=== PATIENT | male | born 1995 | race Caucasian/White ===

== ENCOUNTER 2021-11-11 00:04 | Emergency (ER) | payer BC ==
[~2021-11-11] VITALS: Ht 175.2 cm; Wt 72.4 kg
--- NOTE | 2021-11-11 00:35 | ED Cough/URI ---
General Chief Complaint: COVID19 Suspect/Confirmed Stated Complaint: BODY ACHES,CHILLS,COUGHING,FEVER,SORE THROAT Source: patient History of Present Illness Date Seen by Provider: Nov 11, 2021 Time Seen by Provider: 00:25 Initial Comments PT ARRIVES VIA POV FROM HOME STATES HE HAS BEEN SICK FOR THE LAST 3 DAYS WITH: -NON-PRODUCTIVE COUGH -SUBJECTIVE FEVER AND CHILLS -NASAL CONGESTION -SORE THROAT--MAIN COMPLAINT -BODY ACHES NO SHORTNESS OF BREATH NO HEADACHE NO LOSS OF TASTE/SMELL NO GI SYMPTOMS, BUT DOES NOT HAVE AN APPETITE PT IS DRINKING FLUIDS WELL TOOK IBUPROFEN AT 2100 TONIGHT. OTHERWISE HAS NOT TAKEN ANYTHING ELSE FOR SYMPTOMS HAS NOT SOUGHT CARE UNTIL TONIGHT SYMPTOMS NO DIFFERENT TONIGHT HAS NOT HAD COVID OR FLU VACCINES NO KNOWN SICK CONTACTS NO CHRONIC MEDICAL PROBLEMS PCP NONE Allergies and Home Medications Allergies Coded Allergies: No Known Drug Allergies (Unverified , 11/11/21) Patient Home Medication List Home Medication List Reviewed: Yes Amoxicillin/Potassium Clav (Amox Tr-K Clv 875-125 mg Tab) 875 Mg-125 Mg Tablet, 1 EACH PO BID Prescribed by: YVONNE OLGUIN on 11/11/21 0104 Review of Systems Review of Systems Constitutional: see HPI, chills, fever EENTM: see HPI, nose congestion, throat pain Respiratory: see HPI, cough; No short of breath Cardiovascular: no symptoms reported Gastrointestinal: no symptoms reported Genitourinary: no symptoms reported Musculoskeletal: see HPI (BODY ACHES) Skin: no symptoms reported; No rash Psychiatric/Neurological: No Symptoms Reported Hematologic/Lymphatic: No Symptoms Reported Immunological/Allergic: no symptoms reported Past Xacawzc-Zmrfrp-Cnwvuf Hx Patient Social History Tobacco Use?: No Use of E-Cig and/or Vaping dev: Yes E-Cig or Vaping type used: Nicotine Use of E-Cig and/or Vaping Nasim: Current Everyday User Substance use?: No Alcohol Use?: Yes Alcohol type: Beer, Hard Liquor Alcohol Frequency: Couple times a week Pt feels they are or have been: No Immunizations Up To Date Influenza Vaccine Up-to-Date: No; Not Current Past Medical History Surgeries: No Respiratory: No Cardiac: No Neurological: No Genitourinary: No Gastrointestinal: No Musculoskeletal: No Endocrine: No HEENT: No Cancer: No Psychosocial: No Integumentary: No Blood Disorders: No Physical Exam Vital Signs - First Documented 11/11/21 00:24 Temp 37.7 Pulse 97 Resp 18 B/P (MAP) 151/92 (111) Pulse Ox 97 O2 Delivery Room Air Capillary Refill : Height: '" Weight: lbs. oz. kg; BMI Method: General Appearance: WD/WN, no apparent distress, other (DOES NOT APPEAR ILL OR TO BE IN ANY DISCOMFORT OR DISTRESS. NO COUGH NOTED) HEENT: PERRL/EOMI, TMs normal; No photophobia; pharyngeal erythema; No tonsillar exudate; other (PHARYNX IS VERY INFLAMED AND TONSILS MILDLY SWOLLEN, NO EXUDATE. ) Neck: full range of motion, supple, lymphadenopathy (R) (MILD ANTERIOR), lymphadenopathy (L) (MILD ANTERIOR) Respiratory: normal breath sounds, no respiratory distress, no accessory muscle use Cardiovascular: regular rate, rhythm, no murmur Gastrointestinal: normal bowel sounds, non tender, soft, no organomegaly Extremities: normal inspection, normal capillary refill Neurologic/Psychiatric: carbon accountant II-XII nml as tested, no motor/sensory deficits, alert, normal mood/affect, oriented x 3 Skin: normal color, warm/dry Progress/Results/Core Measures Suspected Sepsis SIRS Temperature: Pulse: Respiratory Rate: Blood Pressure / Mean: Results/Orders Lab Results Laboratory Tests Test 11/11/21 00:19 Range/Units Influenza Type A (RT-PCR) Not Detected Not Detecte Influenza Type B (RT-PCR) Not Detected Not Detecte SARS-CoV-2 RNA (RT-PCR) Not Detected Not Detecte My Orders Orders - YVONNE OLGUIN DO Covid 19 Inhouse Test (11/11/21 00:24) Influenza A And B By Pcr (11/11/21 00:24) Isolation Central Supply Req (11/11/21 00:24) Amoxicillin/Clavulanate Tablet (Augmenti (11/11/21 01:15) Vital Signs/I&O 11/11/21 00:24 Temp 37.7 Pulse 97 Resp 18 B/P (MAP) 151/92 (111) Pulse Ox 97 O2 Delivery Room Air Capillary Refill : Progress Note : Progress Note PLACED IN ISOLATION ROOM PPE WORN AT ALL TIMES COVID AND FLU TESTING DONE. Departure Impression Primary Impression: Pharyngitis Disposition: 01 HOME, SELF-CARE Condition: Stable Departure-Patient Inst. Decision time for Depature: 01:03 Referrals: NO,LOCAL PHYSICIAN (PCP/Family) Primary Care Physician Patient Instructions: Sore Throat, Adult ED Add. Discharge Instructions: LOTS OF CLEAR LIQUIDS--WATER, BROTH, JELLO, GATORADE TYLENOL 1 GRAM + MOTRIN 800 MG 4 TIMES A DAY FOR PAIN OR FEVER OVER THE COUNTER MEDICATIONS FOR COUGH AND CONGESTION SUCH MUCINEX DM FREQUENT SALT WATER GARGLES, AND OVER THE COUNTER THROAT LOZENGES FOR THROAT PAIN FOLLOW UP WITH OF ROSSY IN 3-4 IF NO BETTER, RETURN TO ER IF WORSE All discharge instructions reviewed with patient and/or family. Voiced understanding. Scripts Amoxicillin/Potassium Clav (Amox Tr-K Clv 875-125 mg Tab) 875 Mg-125 Mg Tablet 1 EACH PO BID for 15 Days, #20 TAB Prov: YVONNE OLGUIN DO 11/11/21 YVONNE OLGUIN DO Nov 11, 2021 00:35
[2021-11-11] MEDS ORDERED: AMOX1TAB12 PO (01:04)
[2021-11-11] MEDS ORDERED: AUGMENTIN 875 MG TAB (AMOXICILLIN/CLAVULANATE) PO SCH (01:15)
[2021-11-11 01:17] VITALS: BP 141/88
== END 2021-11-11 01:17 | disposition home or self-care (01) ==
LOC: EDUNIT# 00:04 → ER 00:10
DX: J02.9 Acute pharyngitis, unspecified (principal); F17.290 Nicotine dependence, other tobacco product, uncomplicated; Z20.822 Contact with and (suspected) exposure to COVID-19; Z28.310 Unvaccinated for COVID-19
CPT/HCPCS: 87636; 99283

== ENCOUNTER 2022-09-22 18:40 | Emergency (ER) | payer BC ==
[~2022-09-22] VITALS: Ht 175 cm; Wt 80.7 kg
[~2022-09-22 18:40] MED LIST changes: -PANT40TA2 PO; -TRM50T PO
[2022-09-22] MEDS ORDERED: NS IV 1000 ML 1,000 ML IV SCH (19:30)
--- NOTE | 2022-09-22 19:37 | ED Abdominal Pain ---
General Stated Complaint: ADB PAIN|LOWER RIGHT Source of Information: Patient Exam Limitations: No Limitations History of Present Illness Date Seen by Provider: September 22, 2022 Time Seen by Provider: 19:16 Initial Comments 27-year-old male presents to the ED with complaints of right lower quadrant abdominal pain for the last 3 days. States the pain is been constant, but has been getting worse over time. He reports the pain is stabbing, burning, and throbbing. He reports lifting things makes the pain worse. He reports 1 episode of vomiting today, denies nausea. Reports 2 episodes of loose stools this morning. Denies fevers, chest pain, shortness of air, dysuria. Patient went to the walk-in clinic today where they did some blood work. Allergies and Home Medications Allergies Coded Allergies: No Known Drug Allergies (Unverified , 11/11/21) Patient Home Medication List Home Medication List Reviewed: Yes Amoxicillin/Potassium Clav (Amox Tr-K Clv 875-125 mg Tab) 875 Mg-125 Mg Tablet, 1 EACH PO BID Prescribed by: YVONNE OLGUIN on 11/11/21 0104 Pantoprazole Sodium (Protonix) 40 Mg Tablet.dr, 40 MG PO DAILY Prescribed by: Teresa Dumont on 09/22/222149 Tramadol HCl (Tramadol HCl) 50 Mg Tablet, 50 MG PO Q4H PRN for PAIN Prescribed by: Teresa Dumont on 09/22/222138 Review of Systems Review of Systems Constitutional: see HPI Past Khzrjwn-Nchwog-Jxfsmz Hx Past Medical History Surgeries: No Respiratory: No Cardiac: No Neurological: No Genitourinary: No Gastrointestinal: No Musculoskeletal: No Endocrine: No HEENT: No Cancer: No Psychosocial: No Integumentary: No Blood Disorders: No Physical Exam Vital Signs Vital Signs - First Documented 09/22/22 19:19 Temp 36.9 Pulse 70 Resp 20 B/P (MAP) 153/85 (107) Pulse Ox 99 O2 Delivery Room Air Capillary Refill : Height/Weight/BMI Height: '" Weight: lbs. oz. kg; 23.00 BMI Method: General Appearance: WD/WN, no apparent distress Neck: supple, normal inspection Respiratory: lungs clear, normal breath sounds, no respiratory distress, no accessory muscle use Cardiovascular: regular rate, rhythm Gastrointestinal: soft, abnormal bowel sounds (Hyperactive), rebound, tenderness (Generalized tenderness, worse in the right lower quadrant) Extremities: normal range of motion, normal inspection Neurologic/Psychiatric: alert, normal mood/affect Skin: normal color, warm/dry Progress/Results/Core Measures Results/Orders Lab Results Laboratory Tests Test 09/22/22 19:25 09/22/22 21:15 Range/Units C-Reactive Protein High Sensitivity 0.07 0.00-0.50 MG/DL Amylase Level 45 25-125 U/L Lipase 19 8-78 U/L Urine Color YELLOW Urine Clarity CLEAR Urine pH 5.5 5-9 Urine Specific [place] 1.010 L 1.016-1.022 Urine Protein NEGATIVE NEGATIVE Urine Glucose (UA) NEGATIVE NEGATIVE Urine Ketones NEGATIVE NEGATIVE Urine Nitrite NEGATIVE NEGATIVE Urine Bilirubin NEGATIVE NEGATIVE Urine Urobilinogen 0.2 < = 1.0 MG/DL Urine Leukocyte Esterase NEGATIVE NEGATIVE Urine RBC (Auto) NEGATIVE NEGATIVE Urine RBC NONE /HPF Urine WBC NONE /HPF Urine Squamous Epithelial Cells NONE /HPF Urine Crystals NONE /LPF Urine Bacteria NEGATIVE /HPF Urine Casts NONE /LPF Urine Mucus NEGATIVE /LPF Urine Culture Indicated NO My Orders Orders - TERESA DUMONT APRN Ua Culture If Indicated (09/22/22 19:16) Hs C Reactive Protein (09/22/22 19:23) Lipase (09/22/22 19:23) Amylase (09/22/22 19:23) Ct Abdomen/Pelvis W (09/22/22 19:23) Ed Iv/Invasive Line Start (09/22/22 19:23) Ns Iv 1000 Ml (Sodium Chloride 0.9%) (09/22/22 19:30) Fentanyl Inj (Sublimaze Injection) (09/22/22 19:45) Iohexol Injection (Omnipaque 350 Mg/Ml 1 (09/22/22 20:00) Ns (Ivpb) (Sodium Chloride 0.9% Ivpb Bag (09/22/22 20:00) Rx-Tramadol Hcl (Rx-Ultram) (09/22/22 21:42) Rx-Tramadol Hcl (Rx-Ultram) (09/22/22 21:43) Pantoprazole Tablet (Protonix Tablet) (09/22/22 22:00) Famotidine Tablet (Pepcid Tablet) (09/22/22 22:00) Pantoprazole Tablet (Protonix Tablet) (09/22/22 21:50) Famotidine Tablet (Pepcid Tablet) (09/22/22 21:50) Medications Given in ED Vital Signs/I&O 09/22/22 09/22/22 19:19 21:50 Temp 36.9 Pulse 70 60 Resp 20 18 B/P (MAP) 153/85 (107) 143/80 Pulse Ox 99 98 O2 Delivery Room Air Room Air Progress Progress Note : Time: 19:35 Progress Note Patient seen and evaluated, resting comfortably in bed, no acute distress. Based on exam and symptoms, work-up initiated including CRP, amylase, lipase, UA, CT abdomen pelvis. IV fluids and fentanyl ordered. Patient had CMP and CBC completed at the walk-in clinic. The CBC and CMP were grossly normal, except for slightly elevated chloride at 109. Will not repeat his CBC and CMP. [address] reviewed. CRP, amylase, and lipase normal. UA negative for infection or RBCs. CT negative for acute findings. Results discussed with patient. This pain could be referred pain from a gastric ulcer, will treat with pepcid and protonix here and discharge with protonix and tramadol. Discharge instructions and return precautions provided. Diagnostic Imaging Diagonstic Imaging: CT Plain Films/CT/US/NM/MRI: abdomen, pelvis Comments [facility]. [place], [place] NAME: DONTE DAVIS [facility] REC#: [id number] PT STATUS: REG ER : 1995 PHYSICIAN: TERESA DUMONT APRN ADMIT DATE: 09/22/22/ER Signed Date of Exam:09/22/22 CT ABDOMEN/PELVIS W PROCEDURE: CT abdomen and pelvis with contrast. TECHNIQUE: Multiple contiguous axial images were obtained through the abdomen and pelvis after administration of intravenous contrast. Auto Exposure Controls were utilized during the CT exam to meet ALARA standards for radiation dose reduction. All CT scans use one or more of the following dose optimizing techniques: automated exposure control, MA and/or KvP adjustment based on patient size and exam type or iterative reconstruction. INDICATION: Right lower quadrant pain. COMPARISON: No comparison available. FINDINGS: Lung bases demonstrate no finding of pneumonia or edema. There is no pleural or pericardial effusion. The liver demonstrates no focal intrahepatic abnormality. The gallbladder is nondistended. Portal veins are patent. There is no radiodense gallstone. There is no biliary dilatation. The pancreas is normal. The spleen demonstrates a tiny low-density cyst. There is no adrenal mass. The kidneys enhance normally and are nonobstructed. The stomach is nondistended. There is no abnormal small or large bowel dilation evident. There are no findings of an acute appendicitis. The appendix is normal in caliber without evidence of adjacent inflammatory changes. There is no free fluid within the pelvis. There is no focal abnormal bowel thickening. The urinary bladder is unremarkable. There is no finding of abscess or free air. There is no adenopathy. The abdominal aorta is normal. There is no acute osseous abnormality. There is a prior metallic BB within the right gluteus kelsey muscle belly. Lumbar spine alignment is normal. IMPRESSION: 1. No CT finding of an acute inflammatory or obstructive process within the abdomen or pelvis. 2. No finding of bowel obstruction or appendicitis. 3. No free air, free fluid, abscess or adenopathy. Dictated by: Dictated on workstation # [id number] Dict: 09/22/222034 Trans: 09/22/222140 [facility] [id number] Interpreted by: CARL PEARL MD Electronically signed by: CARL PEARL MD 09/22/222140 Departure Impression Primary Impression: Abdominal pain Disposition: 01 HOME, SELF-CARE Condition: Stable Departure-Patient Inst. Decision time for Depature: 21:35 Referrals: NO,LOCAL PHYSICIAN (PCP/Family) Primary Care Physician Patient Instructions: Severe Abdominal Pain, Adult (DC) Add. Discharge Instructions: Take pain medication as needed, it can cause constipation and make you sleepy. Follow-up with primary care provider. Return for worsening or uncontrolled pain, fever, recurrent vomiting, inability to tolerate food or fluids by mouth, bloody stools or vomit, black or tarry stools, or any other new, concerning, or worsening symptoms. Scripts Pantoprazole Sodium (Protonix) 40 Mg Tablet.dr 40 MG PO DAILY for 14 Days, #14 TAB 0 Refills Prov: TERESA DUMONT [employer]IO E[employer]ICS TECHNICIAN 09/22/22 Tramadol HCl (Tramadol HCl) 50 Mg Tablet 50 MG PO Q4H PRN for PAIN, #15 TAB 0 Refills Prov: TERESA DUMONT APRN 09/22/22 TERESA DUMONT APRN September 22, 2022 19:37
[2022-09-22] MEDS ORDERED: fentaNYL INJ 100 MCG/2 ML AMP IVP ONE (19:45)
[2022-09-22 19:56] LABS: AMYLASE 45 U/L (25-125)
[2022-09-22] MEDS ORDERED: NS 100 ML (IVPB) BAG IV ONE (20:00)
[2022-09-22] MEDS ORDERED: IOHEXOL 350 MG/ML 100 ML (OMNIPAQUE 350) VIAL IV ONE (20:00)
[2022-09-22 20:04] LABS: LIPASE 19 U/L (8-78)
--- NOTE | 2022-09-22 21:13 | Diagnostic Imaging Report ---
PROCEDURE: CT abdomen and pelvis with contrast. TECHNIQUE: Multiple contiguous axial images were obtained through the abdomen and pelvis after administration of intravenous contrast. Auto Exposure Controls were utilized during the CT exam to meet ALARA standards for radiation dose reduction. All CT scans use one or more of the following dose optimizing techniques: automated exposure control, MA and/or KvP adjustment based on patient size and exam type or iterative reconstruction. INDICATION: Right lower quadrant pain. COMPARISON: No comparison available. FINDINGS: Lung bases demonstrate no finding of pneumonia or edema. There is no pleural or pericardial effusion. The liver demonstrates no focal intrahepatic abnormality. The gallbladder is nondistended. Portal veins are patent. There is no radiodense gallstone. There is no biliary dilatation. The pancreas is normal. The spleen demonstrates a tiny low-density cyst. There is no adrenal mass. The kidneys enhance normally and are nonobstructed. The stomach is nondistended. There is no abnormal small or large bowel dilation evident. There are no findings of an acute appendicitis. The appendix is normal in caliber without evidence of adjacent inflammatory changes. There is no free fluid within the pelvis. There is no focal abnormal bowel thickening. The urinary bladder is unremarkable. There is no finding of abscess or free air. There is no adenopathy. The abdominal aorta is normal. There is no acute osseous abnormality. There is a prior metallic BB within the right gluteus kelsey muscle belly. Lumbar spine alignment is normal. IMPRESSION: 1. No CT finding of an acute inflammatory or obstructive process within the abdomen or pelvis. 2. No finding of bowel obstruction or appendicitis. 3. No free air, free fluid, abscess or adenopathy. Dictated by: Dictated on workstation # [id number]
[2022-09-22 21:19] LABS: BILIRUBIN,URINE NEGATIVE (NEGATIVE); CLARITY,URINE CLEAR; COLOR,URINE YELLOW; GLUCOSE, URINE (UA) NEGATIVE (NEGATIVE); KETONES,URINE NEGATIVE (NEGATIVE); LEUKOCYTE ESTERASE ,URINE NEGATIVE (NEGATIVE); NITRITE,URINE NEGATIVE (NEGATIVE); PH,URINE 5.5 (5-9); PROTEIN,URINE NEGATIVE (NEGATIVE)
[2022-09-22 21:25] LABS: BACTERIA,URINE NEGATIVE /HPF
[2022-09-22] MEDS ORDERED: TRM50T PO (21:39)
[2022-09-22 21:50] VITALS: BP 143/80
[2022-09-22] MEDS ORDERED: PANTOPRAZOLE 40 MG (PROTONIX) TAB PO ONE ×2 (21:50→22:00)
[2022-09-22] MEDS ORDERED: FAMOTIDINE 20 MG (PEPCID) TABLET ONE (21:50)
[2022-09-22] MEDS ORDERED: PANT40TA2 PO (21:50)
[2022-09-22] MEDS ORDERED: FAMOTIDINE 20 MG (PEPCID) TABLET PO ONE (22:00)
== END 2022-09-22 21:50 | disposition home or self-care (01) ==
LOC: EDUNIT# 18:40 → ER 18:41
DX: R10.84 Generalized abdominal pain (principal); Z28.310 Unvaccinated for COVID-19
CPT/HCPCS: 36415; 74177; 81000; 82150; 83690; 86141

== ENCOUNTER → 2022-09-22 | Outpatient (CLI) | payer BC ==
[~2022-09-22] MED LIST: AMOX1TAB12 PO; PANT40TA2 PO; TRM50T PO
[2022-09-22 18:36] LABS: BASOPHILS % (AUTO) 1 % (0-10); EOSINOPHILS # (AUTO) 0.1 10^3/uL (0.0-0.3); EOSINOPHILS % (AUTO) 1 % (0-10); HEMATOCRIT 44 % (40-54); HEMOGLOBIN 15.7 g/dL (13.3-17.7); LYMPHOCYTES # (AUTO) 1.7 10^3/uL (1.0-4.0); LYMPHOCYTES % (AUTO) 26 % (12-44); MEAN CORPUSCULAR HEMOGLOBIN 32 pg (25-34); MEAN CORPUSCULAR HGB CONC 35 g/dL (32-36); MEAN CORPUSCULAR VOLUME 90 fL (80-99); MEAN PLATELET VOLUME 9.7 fL (9.0-12.2); MONOCYTES # (AUTO) 0.8 10^3/uL (0.0-1.0); MONOCYTES % (AUTO) 12 % (0-12); NEUTROPHILS # (AUTO) 3.9 10^3/uL (1.8-7.8); NEUTROPHILS % (AUTO) 60 % (42-75); PLATELET COUNT 179 10^3/uL (130-400); WHITE BLOOD COUNT 6.4 10^3/uL (4.3-11.0)
[2022-09-22 18:46] LABS: ALBUMIN 4.2 GM/DL (3.2-4.5); POTASSIUM 4.6 MMOL/L (3.6-5.0)
[2022-09-22 18:48] LABS: CALCIUM 9.1 MG/DL (8.5-10.1)
[2022-09-22 18:49] LABS: TOTAL PROTEIN 7.1 GM/DL (6.4-8.2)
[2022-09-22 18:51] LABS: BILIRUBIN,TOTAL 0.3 MG/DL (0.1-1.0)
[2022-09-22 18:52] LABS: CREATININE SERUM 1.05 MG/DL (0.60-1.30)
== END ==
LOC: LAB 18:21
PROVIDERS: ATTEND Emergency Medicine
DX: R10.32 Left lower quadrant pain (principal); R11.0 Nausea
CPT/HCPCS: 36415; 80053; 85025